=== PATIENT | male | born 1965 | race Caucasian/White ===

== ENCOUNTER 2017-05-28 09:55 | Emergency (ER) | payer MEDICAID ==
[~2017-05-28] VITALS: Ht 160 cm; Wt 74.0 kg
[2017-05-28 11:09] LABS: PLATELET COUNT 189 x10^3mcL (130-400)
[2017-05-28 11:10] LABS: RED CELL DISTRIBUTION WIDTH 15.1 % (11.5-14.5)
[2017-05-28 11:33] LABS: ALKALINE PHOSPHATASE 116 U/L (46-116); ALT/SGPT 29 U/L (16-63); AST/SGOT 30 U/L (15-37); BILIRUBIN TOTAL 1.1 mg/dL (0.20-1.00); CALCIUM 8.9 mg/dL (8.5-10.1); CARBON DIOXIDE 29.2 mmol/L (21-32); CHLORIDE SERUM 96 mmol/L (98-107); CHOLESTEROL 159 mg/dL (<200); CREATININE SERUM 1.3 mg/dL (0.7-1.3); GFR1 > 60 mL/min; POTASSIUM SERUM 3.7 mmol/L (3.5-5.1); SODIUM SERUM 134 mmol/L (136-145); T4(THYROXINE) 9.3 ug/dL (4.7-13.3)
[2017-05-28 11:35] LABS: GLUCOSE SERUM 460 mg/dL (74-106)
[2017-05-28 11:36] LABS: ALBUMIN 2.7 g/dL (3.4-5.0); HDL CHOLESTEROL 14 mg/dL (40-60); TOTAL PROTEIN, SERUM 8.5 g/dL (6.4-8.2)
[2017-05-28 11:57] LABS: BAND NEUTROPHIL 19 % (0-10); BASOPHIL 0 % (0-2); MONOCYTE 10 % (0-7); SEGMENTED NEUTROPHILS 67 % (37-75)
[2017-05-28 11:58] LABS: rbc morphology (normal/abnorm) ABNORMAL (NORMAL)
[2017-05-28 11:59] LABS: PLATELET MORPHOLOGY PLATELETS DECREASED
[2017-05-28 12:00] LABS: UA SPECIFIC GRAVITY 1.015 (1.005-1.035); microscopic required? YES; urine erythrocyte 1+ (NEGATIVE)
[2017-05-28 13:34] VITALS: BP 144/85
[2017-05-28 15:01] VITALS: BP 84/53
== END 2017-05-28 14:50 | disposition short-term general hospital (02) ==
LOC: ED 09:55
PROVIDERS: Emergency Medicine
DX: I21.3 ST elevation (STEMI) myocardial infarction of unspecified site (principal); R91.8 Other nonspecific abnormal finding of lung field; E11.65 Type 2 diabetes mellitus with hyperglycemia
CPT/HCPCS: 82962; 83880; J0696; J1644; J1815; J2060; J3490; J7030; J7040; Q0092; Q9967